=== PATIENT | female | born 1985 | race African-American/Black ===

== ENCOUNTER 2021-09-15 15:40 | Inpatient (IN) | payer OTHER ==
[2021-09-15 16:38] VITALS: BMI 37.8
[2021-09-15 17:28] LABS: BASO % 0.2 % (0-2.0); EOS % 1.1 % (0-4.5); HEMATOCRIT 28.7 % (32.4-45.2); HEMOGLOBIN 9.3 GM/dL (10.7-15.3); LYMPH % 31.9 % (8-40); MCH 25.8 pg (25.7-33.7); MCHC 32.6 g/dl (32.0-36.0); MEAN CELL VOLUME 79.1 fl (80-96); MEAN PLT VOLUME 8.6 fl (7.5-11.1); MONO % 9.8 % (3.8-10.2); PLATELET COUNT 276 10^3/uL (134-434); RBC 3.62 M/mm3 (3.60-5.2); RDW 15.1 % (11.6-15.6); WHITE BLOOD COUNT 4.3 K/mm3 (4.0-10.0)
[2021-09-15 17:34] LABS: INR 1.01 (0.83-1.09); PROTHROMBIN TIME (PATIENT) 11.6 SEC (9.7-13.0)
[2021-09-15 17:36] LABS: ACTIVATED PTT 26.6 SECONDS (25.2-36.5)
[2021-09-15 17:51] LABS: ALBUMIN 2.4 g/dl (3.4-5.0); BLOOD UREA NITROGEN 7.5 mg/dL (7-18)
[2021-09-15 17:53] LABS: URIC ACID 3.8 mg/dL (2.6-7.2)
[2021-09-15 17:54] LABS: CREATININE 0.5 mg/dL (0.55-1.3)
[2021-09-15 17:55] LABS: BILIRUBIN,TOTAL 0.7 mg/dL (0.2-1); TOT PROT 6.7 g/dl (6.4-8.2)
[2021-09-15] MEDS ORDERED: LABETALOL HCL 100 MG TABLET (FP) ONE (20:48)
[2021-09-15 20:54] LABS: URINE APPEARANCE CLOUDY; URINE BILIRUBIN NEGATIVE (NEGATIVE); URINE COLOR DK YELLOW; URINE GLUCOSE (UA) NEGATIVE (NEGATIVE); URINE KETONE 3+ (NEGATIVE); URINE LEUK ESTERASE NEGATIVE (NEGATIVE); URINE NITRITE NEGATIVE (NEGATIVE); URINE PROTEIN TRACE (NEGATIVE)
[2021-09-15] MEDS: LABETALOL HCL 100 MG TABLET (FP) PO SCH (21:00)
[2021-09-16] MEDS ORDERED: ACETAMINOPHEN 325 MG TABLET (FP) PO ONE (00:40)
[2021-09-16] MEDS ORDERED: ACETAMINOPHEN 325 MG TABLET (FP) ONE (00:43)
[2021-09-16] MEDS: LABETALOL HCL 100 MG TABLET (FP) PO SCH ×2 (09:06→22:41)
[2021-09-16] MEDS ORDERED: morphine SULFATE/PF 1 MG/2 ML (2cc Syringe - QUVA) ONE (14:16)
[2021-09-16] MEDS ORDERED: CITRIC ACID/SODIUM CITRATE 30 ML UNIT-DOSE CUP PO ONE (14:31)
[2021-09-16] MEDS ORDERED: ACETAMINOPHEN 325 MG TABLET (FP) PO PRN (14:32)
[2021-09-16] MEDS ORDERED: METHYLERGONOVINE MALEATE 0.2 MG/1 ML AMP IM PRN (14:32)
[2021-09-16] MEDS ORDERED: ONDANSETRON 4 MG/2 ML VIAL IVPUSH PRN (14:35)
[2021-09-16] MEDS ORDERED: ELECTROLYTE-148 SOLN 1,000 ML IV SCH (14:45)
[2021-09-16] MEDS ORDERED: ONDANSETRON 4 MG/2 ML VIAL ONE (16:11)
[2021-09-16] MEDS ORDERED: KETOROLAC TROMETHAMINE 30 MG/1 ML VIAL ONE (16:11)
[2021-09-16] MEDS: OXYTOCIN 20 UNITS in 0.9% NS 20 UNIT/1,000 ML INFUS.BAG IV SCH (16:45)
[2021-09-16 16:51] LABS: VENOUS BASE EXCESS -3.9 mmol/L (-2-2); VENOUS O2 SATURATION 53.4 % (70-80); VENOUS PCO2 42.3 mmHg (38-52); VENOUS PH 7.332 (7.310-7.410)
[2021-09-17] MEDS ORDERED: oxyCODONE HCL 5 MG TABLET PO PRN ×2 (02:32)
[2021-09-17] MEDS: OXYTOCIN 20 UNITS in 0.9% NS 20 UNIT/1,000 ML INFUS.BAG IV SCH (06:19)
[2021-09-17 07:40] LABS: BASO % 0.2 % (0-2.0); EOS % 0.1 % (0-4.5); HEMATOCRIT 28.2 % (32.4-45.2); HEMOGLOBIN 9.1 GM/dL (10.7-15.3); LYMPH % 15.3 % (8-40); MCH 25.7 pg (25.7-33.7); MCHC 32.2 g/dl (32.0-36.0); MEAN CELL VOLUME 79.8 fl (80-96); MEAN PLT VOLUME 8.7 fl (7.5-11.1); MONO % 6.9 % (3.8-10.2); NEUT % 77.5 % (42.8-82.8); PLATELET COUNT 282 10^3/uL (134-434); RBC 3.54 M/mm3 (3.60-5.2); RDW 15.2 % (11.6-15.6); WHITE BLOOD COUNT 6.4 K/mm3 (4.0-10.0)
[2021-09-17] MEDS: ENOXAPARIN NA (PORCINE) 40 MG/0.4 ML DISP.SYRIN SQ SCH (09:50)
[2021-09-17] MEDS: LABETALOL HCL 100 MG TABLET (FP) PO SCH ×2 (09:50→21:38)
[2021-09-17] MEDS ORDERED: PNEUMOC 13-VAL CONJ-DIP CRM/PF 0.5 ML DISP.SYRIN IM ONE (10:00)
[2021-09-17] MEDS ORDERED: ceFAZolin SODIUM 1 GM VIAL ONE ×2 (11:28→18:03)
[2021-09-17] MEDS ORDERED: DEXTROSE 5%-WATER - 50 ML IVPB ONE ×3 (11:28→18:03)
[2021-09-17] MEDS: CEFAZOLIN 1 GM in DEXTROSE 5%-WATER - 1 GM/50 ML IVPB IVPB SCH ×2 (11:34→18:11)
[2021-09-17] MEDS ORDERED: PNEUMOCOCCAL 23 VACCINE 0.5 ML VIAL IM ONE (12:00)
[2021-09-17] MEDS: SIMETHICONE 80 MG TAB.CHEW (FP) PO PRN (12:18)
[2021-09-17] MEDS: IBUPROFEN 600 MG TABLET (FP) PO PRN ×2 (12:18→18:24)
[2021-09-17] MEDS ORDERED: BISACODYL 10 MG SUPP.RECT RC PRN (14:32)
[2021-09-18] MEDS ORDERED: DEXTROSE 5%-WATER - 50 ML IVPB ONE (01:57)
[2021-09-18] MEDS ORDERED: ceFAZolin SODIUM 1 GM VIAL ONE (01:57)
[2021-09-18] MEDS: CEFAZOLIN 1 GM in DEXTROSE 5%-WATER - 1 GM/50 ML IVPB IVPB SCH ×2 (02:02→11:00)
[2021-09-18] MEDS: SIMETHICONE 80 MG TAB.CHEW (FP) PO PRN ×2 (05:59→12:38)
[2021-09-18] MEDS: LABETALOL HCL 100 MG TABLET (FP) PO SCH ×2 (10:24→21:09)
[2021-09-18] MEDS: ENOXAPARIN NA (PORCINE) 40 MG/0.4 ML DISP.SYRIN SQ SCH (10:25)
[2021-09-18] MEDS: IBUPROFEN 600 MG TABLET (FP) PO PRN (12:38)
[2021-09-18] MEDS: OXYTOCIN 20 UNITS in 0.9% NS 20 UNIT/1,000 ML INFUS.BAG IV SCH (21:08)
[2021-09-19] MEDS: IBUPROFEN 600 MG TABLET (FP) PO PRN ×2 (00:40→09:17)
[2021-09-19] MEDS: SIMETHICONE 80 MG TAB.CHEW (FP) PO PRN ×2 (00:41→09:17)
[2021-09-19 06:58] LABS: BASO % 0.4 % (0-2.0); EOS % 1.5 % (0-4.5); HEMOGLOBIN 8.2 GM/dL (10.7-15.3); LYMPH % 22.2 % (8-40); MCH 26.3 pg (25.7-33.7); MCHC 32.7 g/dl (32.0-36.0); MEAN CELL VOLUME 80.2 fl (80-96); MEAN PLT VOLUME 8.4 fl (7.5-11.1); MONO % 8.4 % (3.8-10.2); NEUT % 67.5 % (42.8-82.8); PLATELET COUNT 313 10^3/uL (134-434); RBC 3.12 M/mm3 (3.60-5.2); RDW 15.7 % (11.6-15.6)
[2021-09-19] MEDS: ENOXAPARIN NA (PORCINE) 40 MG/0.4 ML DISP.SYRIN SQ SCH (09:17)
[2021-09-19] MEDS: LABETALOL HCL 100 MG TABLET (FP) PO SCH (09:17)
[2021-09-19 15:00] VITALS: BP 126/85; PULSE 81; TEMP 98.2
== END 2021-09-19 13:10 | disposition home or self-care (01) | DRG 787 ==
LOC: JLDR 15:40 → J3W 21:38
PROVIDERS: ADMIT Obstetrics & Gynecology; ATTEND Obstetrics & Gynecology
PROC: 10D00Z1 Extraction of Products of Conception, Low, Open Approach (ICD-10-PCS; principal; 2021-09-16)
DX: O34.219 Maternal care for unspecified type scar from previous cesarean delivery (principal); O10.92 Unspecified pre-existing hypertension complicating childbirth; O69.81X0 Labor and delivery complicated by cord around neck, without compression, not applicable or unspecified; O99.02 Anemia complicating childbirth; D64.9 Anemia, unspecified; O99.892 Other specified diseases and conditions complicating childbirth; N73.6 Female pelvic peritoneal adhesions (postinfective); Z3A.38 38 weeks gestation of pregnancy; Z37.0 Single live birth
CPT/HCPCS: 36415; 80053; 81003; 82803; 84550; 85025; 85610; 85730; 86780; 86850; 86900; 86901; 88307-TC; C9803; U0003; U0005